=== PATIENT | male | born 1990 | race Caucasian/White ===

== ENCOUNTER 2018-04-01 19:37 | Emergency (ER) | payer BC, SELFPAY ==
[2018-04-01 19:39] VITALS: BP 120/86; PULSE 89; RESP 17; TEMP 36.8; O2SAT 98; BMI 26.9
[2018-04-01 20:34] LABS: Anion Gap 8 (5-15); BUN 20 mg/dL (7-18); BUN/Creat Ratio 16.8 RATIO (10-20); Calcium,Total 9.1 mg/dL (8.5-10.1); Chloride 105 mmol/L (98-107); Creatinine, Serum 1.19 mg/dL (0.70-1.30); EST Glomerular Filtration Rate 79 mL/min (>60); Est Glom Filt Rate - Afr Amer 95 mL/min (>60); Estimated Creatinine Clearance 82.55 ml/min; Glucose 83 mg/dL (74-106); Potassium 3.9 mmol/L (3.5-5.1); Sodium Level 135 mmol/L (136-145)
[2018-04-01 20:36] LABS: Absolute Lymphocyte Count 1.78 X10^3/ul (0.83-4.51); Basophil# 0.03 X10^3/uL; Basophil% 0.3 % (0-1); Eosinophil# 0.77 X10^3/uL; Eosinophils% 7.1 % (0-5); Hematocrit 42.3 % (40-54); Lymphocyte # 1.78 X10^3/ul (4.0); Lymphocyte % 16.5 % (19-41); Mean Platelet Vol. 9.9 fl (6.2-12.0); Monocyte# 1.26 X10^3/uL; Monocyte% 11.7 % (0-10); Neutrophil # 6.95 X10^3/uL (2.7-7.7); Neutrophil % 64.2 % (47-70); Platelet Count 304 K/mm3 (150-450); RBC Distribution Width CV 12.3 % (11.6-14.6); RBC Distribution Width SD 36.5 fl (35.1-43.9); Red Blood Count 5.16 M/mm3 (4.6-6.2); White Blood Count 10.8 K/mm3 (4.4-11.0)
[2018-04-01 20:45] LABS: Hemoglobin 15.2 g/dl (13.0-16.5); Mean Corpuscular Hgb 29.5 pg (27.0-32.0)
[2018-04-01 20:46] LABS: Mean Corp Hgb Conc 35.9 g/gl (32-36); POSITIVE COUNT NO; POSITIVE DIFFERENTIAL NO; POSITIVE MORPHOLOGY NO
[2018-04-01] MEDS: 0.9% Normal Saline 1,000 ML 1000 ML IV (21:08)
--- NOTE | 2018-04-01 21:32 | ED.DCSUM_ITS ---
- ER Visit Summary Date of Service: 04/01/18 Chief Complaint: Diarrhea History of Present Illness: The patient is a 27 M with no primary care physician. He reports he has diarrhea that began 5 days ago. He reports he is having a 6-8 times per day. No blood in stools or black tarry stools. He has been nauseated, but has not vomited. He reports he has aching lower abdominal pain is 3-10 at worst and he is pain-free currently. Pain is worsened by laying on his abdomen. It is relieved by nothing. He denies any fever or chills. Patient denies sick contacts. Has not been camping out of the country. No possible bad food exposure. Does not drink well water. No recent antibiotic use. Physical Examination: Vitals: Stable. Afebrile. General: Well-nourished and well-developed. Head: Normocephalic atraumatic. Neck: Supple, no lymphadenopathy. No JVD. Nontender. Cardiovascular: Regular rate and rhythm. No murmurs. Respiratory: No respiratory distress. Clear to auscultation bilaterally. Abdominal: Soft, nontender, nondistended, normal bowel sounds. No guarding, rebound, or peritoneal signs. Back: Nontender. Extremities: Nontender, no edema. Skin: Normal color, no rash. Neurologic: Alert and oriented ?3. Cranial nerves II through XII are intact. Normal strength and sensation. Psych: Normal affect. Test Results: CBC is remarkable for lymphocytes of 17, monocytes of 12, eosinophils of 7. Chem-7 is more for sodium 135 and BUN of 20. Emergency Department Course and Treatment: Patient refused pain medications. He was unable to give a stool sample while here. Treatment Plan: Patient be discharged instructions to follow-up the [facility] in 1-2 days if not improving. Return to the emergency department for any worsening symptoms. Disposition: To home in improved and stable condition. Impression: 1. Diarrhea. This note was generated with [employer] dictation software. It may contain incorrect words, spelling, and punctuation that were not noted in review of the chart prior to signing ED Disposition - Plan for ED Patient: Disposition: Home or Assisted Living Chief Complaint: Abd Pain Instructions: ED Diarrhea Viral Prescriptions: Ondansetron [Zofran Odt] 4 mg PO Q8H PRN PRN #10 tablet PRN Reason: Nausea Referrals: Miroslava Mora [NON-STAFF] - 1-2 Days if not improving
[2018-04-01 21:50] VITALS: BP 105/63; PULSE 77; PULSE 82; RESP 16; O2SAT 97; O2SAT 98
--- NOTE | 2018-04-01 21:51 | ED.RN ---
IV DC'ED, CATHETER INTACT, SMALL GAUZE DRESSING PLACED. DISCHARGE INSTRUCTIONS GIVEN TO AND REVIEWED WITH PATIENT, PATIENT DENIES QUESTIONS OR CONCERNS AND VOICES UNDERSTANDING OF DISCHARGE INSTRUCTIONS. PT AMBULATES OUT OF ROOM WITHOUT DIFFICULTY.
== END 2018-04-01 21:52 | disposition home or self-care (01) ==
PROVIDERS: Emergency Provider Emergency Medicine
DX: R19.7 Diarrhea, unspecified (principal)
CPT/HCPCS: 80048; 85025; 96360; 99285; J7030; A4216